=== PATIENT | female | born 1970 | race African-American/Black ===

== ENCOUNTER 2017-03-30 13:28 | Emergency (ER) | payer BC ==
[~2017-03-30] VITALS: Ht 162.6 cm; Wt 121.1 kg
--- NOTE | ~2017-03-30 | EKG ---
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
[2017-03-30] MEDS ORDERED: GLUCOPHAGE XR500 MG PO (14:44)
[2017-03-30] MEDS ORDERED: CHLORTHALIDONE25 MG PO (14:45)
[2017-03-30] MEDS ORDERED: VENTOLIN HFA 1818 GM INH (14:45)
[2017-03-30] MEDS ORDERED: ZYRTEC10 M5 PO (14:46)
[2017-03-30 16:36] LABS: ABSOLUTE NEUTROPHILS 7.5 thou/uL (1.4-8.2); BASOPHILS 0.5 % (0.0-2.0); EOSINOPHILS 1.1 % (0.0-3.0); HEMATOCRIT 35.8 % (37.0-47.0); HEMOGLOBIN 11.3 gm/dL (12.0-15.0); LYMPHOCYTES 25.3 % (24.0-44.0); MCH 20.6 pg (26.0-34.0); MCHC 31.6 g/dL (28.0-37.0); MCV 65.2 fL (80.0-100.0); MONOCYTES 4.7 % (1.0-8.0); PLATELET COUNT 291 thou/uL (150-400); POLYS 68.4 % (36.0-66.0); RDW 16.7 % (10.5-14.5)
[2017-03-30 16:51] LABS: ANION GAP 8 mmol/L (7-16); BUN 10 mg/dL (7-18); CHLORIDE 102 mmol/L (98-107); CO2 29 mmol/L (21-32); CREATININE 0.8 mg/dL (0.6-1.0); GLUCOSE 96 mg/dL (74-106); POTASSIUM 3.6 mmol/L (3.5-5.1); SODIUM 139 mmol/L (136-145); TROPONIN-I < 0.04 ng/mL (<0.06)
[2017-03-30 17:01] LABS: ANISOCYTOSIS 1+; HYPOCHROMASIA 1+; MICROCYTES 1+
[2017-03-30 17:02] LABS: CALCIUM 9.1 mg/dL (8.5-10.1)
== END 2017-03-30 18:46 | disposition home or self-care (01) ==
LOC: ER 13:28
PROVIDERS: Nurse Practitioner
DX: R20.2 Paresthesia of skin (principal); R20.0 Anesthesia of skin; E11.9 Type 2 diabetes mellitus without complications; J45.909 Unspecified asthma, uncomplicated; I10 Essential (primary) hypertension; Z88.8 Allergy status to other drugs, medicaments and biological substances

== ENCOUNTER 2017-04-03 14:34 | Emergency (ER) | payer BC ==
[~2017-04-03] VITALS: Ht 162.6 cm; Wt 121.1 kg
--- NOTE | ~2017-04-03 | EKG ---
[address] [place] [address] [facility] [place] [address] ELECTROCARDIOGRAM REPORT Name: JONESSTEPHANE Starkey Room #: [facility].#: [id number] Admission: Attend Phys: Discharge: Date of : 70 Report #: [id number] THIS REPORT FOR: //name// [facility] ED Test Date: 2017-04-03 Test Time: 14:41:42 Pat Name: STEPHANE JONES Department: Room: Gender: F Clinical Quality Analyst: VERONIKA : 1970 Requested By: Rose Justice Order Number: [id number] MD: Measurements Intervals [place] Rate: 62 P: 20 [place]: 190 QRS: 50 QRSD: 86 T: -14 QT: 407 QTc: 414 Interpretive Statements Sinus rhythm Borderline T abnormalities, anterior leads Compared to ECG 03/30/2017 15:51:01 No significant changes [email or web address] By: 1441 1441 Clarence Lima MD /EPI
[~2017-04-03 14:34] MED LIST: CHLORTHALIDONE25 MG PO; GLUCOPHAGE XR500 MG PO; VENTOLIN HFA 1818 GM INH; ZYRTEC10 M5 PO
[2017-04-03 15:28] LABS: HEMOGLOBIN 11.5 gm/dL (12.0-15.0); MCH 21.1 pg (26.0-34.0); MCHC 32.1 g/dL (28.0-37.0); MCV 65.9 fL (80.0-100.0); RBC 5.46 mil/uL (4.20-5.00); RDW 16.4 % (10.5-14.5); WBC 10.5 thou/uL (4.0-11.0)
[2017-04-03 15:36] LABS: ANION GAP 4 mmol/L (7-16); BUN 10 mg/dL (7-18); CALCIUM 9.4 mg/dL (8.5-10.1); CHLORIDE 100 mmol/L (98-107); CO2 33 mmol/L (21-32); CREATININE 0.9 mg/dL (0.6-1.0); GLUCOSE 101 mg/dL (74-106); POTASSIUM 3.1 mmol/L (3.5-5.1); SODIUM 137 mmol/L (136-145)
[2017-04-03 15:44] LABS: ALBUMIN 3.8 g/dL (3.4-5.0); SGOT 22 U/L (15-37); SGPT 22 U/L (30-65); TOTAL BILIRUBIN 0.2 mg/dL (<0.1-1.0); TOTAL PROTEIN 7.7 g/dL (6.4-8.2); TROPONIN-I < 0.04 ng/mL (<0.06)
== END 2017-04-03 16:59 | disposition home or self-care (01) ==
LOC: ER 14:34
PROVIDERS: Physician Assistant
DX: R20.2 Paresthesia of skin (principal); R20.0 Anesthesia of skin; R00.2 Palpitations; E11.9 Type 2 diabetes mellitus without complications; J45.909 Unspecified asthma, uncomplicated; I10 Essential (primary) hypertension; Z88.1 Allergy status to other antibiotic agents; Z88.8 Allergy status to other drugs, medicaments and biological substances

== ENCOUNTER 2019-02-15 15:23 | Emergency (ER) | payer BC ==
[~2019-02-15] VITALS: Ht 162.6 cm; Wt 121.1 kg
[2019-02-15 16:57] VITALS: BP 147/68
== END 2019-02-15 17:00 | disposition home or self-care (01) ==
LOC: ER 15:23
DX: S61.212A Laceration without foreign body of right middle finger without damage to nail, initial encounter (principal); E11.9 Type 2 diabetes mellitus without complications; J45.909 Unspecified asthma, uncomplicated; I10 Essential (primary) hypertension; Z88.1 Allergy status to other antibiotic agents; Z88.8 Allergy status to other drugs, medicaments and biological substances; Z88.6 Allergy status to analgesic agent; Z79.899 Other long term (current) drug therapy; W26.0XXA Contact with knife, initial encounter; Y93.89 Activity, other specified; Y92.090 Kitchen in other non-institutional residence as the place of occurrence of the external cause; Y99.9 Unspecified external cause status

== ENCOUNTER 2019-04-06 18:43 | Emergency (ER) | payer BC ==
[~2019-04-06] VITALS: Ht 162.6 cm; Wt 122.5 kg
[2019-04-06 20:20] VITALS: BP 157/47
[2019-04-06 20:55] LABS: ABSOLUTE NEUTROPHILS 6.8 thou/uL (1.4-8.2); BASOPHILS 0.8 % (0.0-2.0); EOSINOPHILS 0.8 % (0.0-3.0); HEMOGLOBIN 10.8 gm/dL (12.0-15.0); LYMPHOCYTES 24.6 % (24.0-44.0); MCH 20.6 pg (26.0-34.0); MCHC 30.7 g/dL (28.0-37.0); MCV 67.1 fL (80.0-100.0); MONOCYTES 3.8 % (1.0-8.0); PLATELET COUNT 311 thou/uL (150-400); RBC 5.22 mil/uL (4.20-5.00); RDW 16.9 % (10.5-14.5); WBC 9.8 thou/uL (4.0-11.0)
[2019-04-06 21:13] LABS: ANION GAP 8 mmol/L (7-16); BUN 8 mg/dL (7-18); CALCIUM 9.1 mg/dL (8.5-10.1); CHLORIDE 102 mmol/L (98-107); CO2 27 mmol/L (21-32); CREATININE 0.8 mg/dL (0.6-1.0); GLUCOSE 124 mg/dL (74-106); POTASSIUM 3.6 mmol/L (3.5-5.1); SODIUM 137 mmol/L (136-145)
[2019-04-06 21:19] LABS: ALBUMIN 3.8 g/dL (3.4-5.0); LIPASE 95 U/L (73-393); SGOT 19 U/L (15-37); SGPT 24 U/L (30-65); TOTAL BILIRUBIN 0.1 mg/dL (<0.1-1.0); TOTAL PROTEIN 7.8 g/dL (6.4-8.2); TROPONIN-I <0.06 ng/mL (<0.06)
[2019-04-06] MEDS ORDERED: SPIRONOLACTONE25 M1 PO (21:36)
[2019-04-06 21:43] LABS: ANISOCYTOSIS 1+; HYPOCHROMASIA 3+; MICROCYTES 2+
--- NOTE | 2019-04-09 14:47 | EKG ---
[address] [address] ELECTROCARDIOGRAM REPORT Name: STEPHANE JONES 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
== END 2019-04-06 22:07 | disposition home or self-care (01) ==
LOC: ER 18:43
PROVIDERS: Physician Assistant
DX: I10 Essential (primary) hypertension (principal); E11.9 Type 2 diabetes mellitus without complications; E66.09 Other obesity due to excess calories; Z88.6 Allergy status to analgesic agent; Z88.1 Allergy status to other antibiotic agents; Z88.8 Allergy status to other drugs, medicaments and biological substances